=== PATIENT | male | born 1965 | race Two or more races ===

== ENCOUNTER 2019-01-14 08:10 | Emergency (ER) | payer MEDICAID ==
[~2019-01-14] VITALS: Ht 172.7 cm; Wt 83.0 kg
[2019-01-14 09:50] VITALS: BP 130/98
== END 2019-01-14 09:51 | disposition home or self-care (01) ==
LOC: ER 08:10
DX: K04.7 Periapical abscess without sinus (principal); E11.9 Type 2 diabetes mellitus without complications; F12.10 Cannabis abuse, uncomplicated; Z90.49 Acquired absence of other specified parts of digestive tract; Z88.8 Allergy status to other drugs, medicaments and biological substances
CPT/HCPCS: 99283